=== PATIENT | female | born 1940 | race Caucasian/White ===

== ENCOUNTER 2016-06-30 08:36 | Inpatient (IN) | payer MEDICARE, BC ==
[~2016-06-30 08:36] MED LIST: CYMBALTA60 M1 PO; OMEPRAZOLE20 M3 PO; VITAMIN D31000 UNI3 PO; WAL-DRYL25 M1 PO; XANAX0.5 M1 PO
[2016-06-30 10:03] LABS: ANION GAP 10 mmol/L (0-20); BLOOD UREA NITROGEN 13 mg/dl (6-24); CALCIUM 8.8 mg/dl (8.5-10.5); CARBON DIOXIDE-VENOUS 30 mmol/L (22-32); CHLORIDE 104 mmol/l (96-110); CREATININE 0.86 mg/dl (0.50-1.10); GLUCOSE 103 mg/dL (70-110); POTASSIUM 4.1 mmol/L (3.7-5.1); SODIUM 140 mmol/L (135-145); eGFR VALUE FOR BLACK 77 mL/Min
--- NOTE | 2016-06-30 20:55 | NUR ---
VIRTUAL CARE NOTE: INTRODUCED MYSELF AND VN SERVICES. REVIEWED PLAN OF CARE. PT SAID SHE IS TRYING TO KEEP UP ON IS, HAS BEEN FOR A WALK WITH HER , AND PAIN IS WELL CONTROLED. SHE FELT A 'TWINGE' OF PAIN EARLIER BUT HAS SINCE BEEN COMFORTABLE. REVIEWED IMPORTANCE OF PAIN MANAGEMENT AND STAYING AHEAD THROUGHOUT THE NIGHT. PT V/U AND AGREED TO ASK FOR MEDS WHEN NEEDED. DENIES ANY OTHER NEEDS/QUESTIONS/CONCERNS AT THIS TIME. ENCOURAGED FALL PRECAUTIONS AND TO NOTIFY STAFF WITH ANY NEEDS. PT V/U. WILL WORK ON DC AND CONTINUE WITH CHART REVIEW.
[2016-07-01 05:29] LABS: IMMATURE GRANULOCYTES ABSOLUTE 0.01 tho/cmm (0-0.03); IMMATURE GRANULOCYTES PERCENT 0.1 % (0-0.3); LYMPH % 16.7 % (20-45); LYMPH ABSOLUTE COUNT 1.3 tho/cmm (0.8-4.5); MCH (MEAN CORPUSCULAR HGB) 29.7 pg (28.0-32.0); MCHC MEAN CORPUSCULAR HGB CONC 32.4 % (32.0-36.0); MCV (MEAN CELL VOLUME) 91.6 fl (82.0-96.0); MEAN PLATELET VOLUME 9.7 cmc (9.4-12.4); MONO % 4.8 % (0-12); MONOCYTE ABSOLUTE COUNT 0.4 tho/cmm (0.0-1.2); NEUTROPHIL ABSOLUTE COUNT 6.1 tho/cmm (1.6-8.0); NEUTROPHIL-AUTOMATED 6.1 tho/cmm (1.6-8.0); NEUTROPHILS % 78.4 % (40-80); PLATELET COUNT 188 tho/cmm (150-450); RED BLOOD COUNT 4.04 mil/cmm (4.00-5.20); RED CELL DISTRIBUTION WIDTH 14.7 % (12.4-16.4); WHITE BLOOD COUNT 7.8 tho/cmm (4.0-10.0)
[2016-07-01 06:17] LABS: ALBUMIN 3.3 g/dl (3.5-5.0); ANION GAP 12 mmol/L (0-20); BLOOD UREA NITROGEN 13 mg/dl (6-24); CALCIUM 8.6 mg/dl (8.5-10.5); CARBON DIOXIDE-VENOUS 28 mmol/L (22-32); CHLORIDE 107 mmol/l (96-110); CREATININE 0.75 mg/dl (0.50-1.10); GLUCOSE 116 mg/dL (70-110); PHOSPHOROUS 3.2 mg/dl (2.5-4.9); POTASSIUM 4.6 mmol/L (3.7-5.1); SODIUM 142 mmol/L (135-145); eGFR VALUE FOR BLACK >90 mL/Min
--- NOTE | 2016-07-02 13:15 | NUR ---
VN ROUNDING NOTE-PATIENT IS SITTING UP IN CHAIR COMFORTABLY PER HER STATEMENT OUR CAMERA ONLY SEES THE CEILING AT THIS TIME. PATIENT STATES LITTLE TO NO PAIN AND TOLERATED HER CLEAR LIQUIDS FOR LUNCH. SHE HAS NO FURTHER QUESTIONS OR CONCERNS AND STATES SHE HAS VOIDED SINCE CATH WAS REMOVED AND HAD A SMALL BM AND AMBULATED IN THE HALLS X2 SO FAR TODAY. ENC HER TO AMBULATE AT LEAST 4X EACH DAY AND TO CONTINUE USING THE INCENTIVE SPRIROMETER. CHART REVIEWED
--- NOTE | 2016-07-02 21:20 | NUR ---
VIRTUAL CARE NOTE: THIS RN CANNOT VIEW PT. DUE TO CAMERA MALFUNCTION, BUT PT. STATES IS ALBE TO SEE THIS RN. EXPLAINED THAT SHE IS HAVING CLEAR LIQUIDS, IS PASSING GAS AND STOOL AND HAS WALKED SEVEREAL TIMES. SHE ALSO STATES SHE WAS TOLD ABOUT HER CANCER IN HER ABD AND WAS GOING TO TALK TO DR. YAO, AND HAS NOTIFIED HER CHILDREN WHO ARE VERY SUPPORTIVE. SHE STATES SHE HAS A GOOD OUTLOOK AND HAS LOTS OF SUPPORT AND FEELS LIKE SHE IS DOING OKAY. WANTS TO READ A BOOK SHE HAS BEEN WANTING TO DO FOR QUITE SOME. PRAISE GIVEN AND ENCOURAGMENT GIVEN TO PT. VERBALLY. DENIES FURTHER NEEDS AT THIS TIME AND INSTRUCTED TO CALL FOR FUTURE NEEDS. STATES VERBAL AGGREEMENT.
[2016-07-03] MEDS ORDERED: PERCOCET 5-3251 EACH PO (08:26)
== END 2016-07-03 12:40 | DRG 331 ==
LOC: SHSB 08:36 → ORW 10:30 → PACU 12:31 → 5WD 13:40
PROVIDERS: ADMIT Specialist
PROC: 0DTF0ZZ Resection of Right Large Intestine, Open Approach (ICD-10-PCS; principal; 2016-06-30)
DX: C18.0 Malignant neoplasm of cecum (principal); I10 Essential (primary) hypertension; K58.9 Irritable bowel syndrome, unspecified; M79.7 Fibromyalgia; F41.9 Anxiety disorder, unspecified; K21.9 Gastro-esophageal reflux disease without esophagitis; E78.5 Hyperlipidemia, unspecified; M85.80 Other specified disorders of bone density and structure, unspecified site; R00.0 Tachycardia, unspecified
CPT/HCPCS: C9113; J0295; J0690; J1650; J1885; J2765; J7030